=== PATIENT | female | born 1965 | race Caucasian/White ===

== ENCOUNTER → 2017-03-19 | Outpatient (CLI) | payer OTHER ==
--- NOTE | 2017-03-20 08:03 | MM ---
Reason for exam: additional evaluation requested from prior study. Last mammogram was performed 2 years ago. History: Patient is postmenopausal and history of other cancer. Family history of breast cancer in cousin and breast cancer in mother at age 65. Took hormonal contraceptives for 7 years beginning at age 12. Physical Findings: Nurse did not find any significant physical abnormalities on exam. MG Diagnostic Mammo w CAD SARAH Bilateral CC and MLO view(s) were taken. Prior study comparison: March 18, 2015, bilateral MG work up mamm w CAD BILAT. February 17, 2015, bilateral MG screening mammo w CAD. The breast tissue is heterogeneously dense. This may lower the sensitivity of mammography. There is chronic nodularity bilaterally. Vague increased density superior left breast without distortion or dominant mass. Summation is suspected. A 6 month follow up is recommended. These results were verbally communicated with the patient and result sheet given to the patient on 03/19/17. ASSESSMENT: Probably benign, BI-RAD 3 RECOMMENDATION: Follow-up diagnostic mammogram of the left breast in 6 months.
== END | disposition home or self-care (01) ==
LOC: RADMAMWWP 14:19
PROVIDERS: ATTEND Family Medicine
DX: R92.8 Other abnormal and inconclusive findings on diagnostic imaging of breast (principal)

== ENCOUNTER → 2017-06-03 | Outpatient (CLI) | payer OTHER ==
--- NOTE | 2017-06-03 12:36 | XR ---
Left hip HISTORY: Chronic left hip pain 2 views of the left hip Comparison to CT dated 06/13/2015 Marginal spurring is present at the femoral head. Alignment, bone mineralization are maintained. No f racture or dislocation. There may be some mild loss of joint space. IMPRESSION: Osteoarthritis.
== END | disposition home or self-care (01) ==
LOC: RADXRMAIN 11:36
PROVIDERS: ATTEND Physician Assistant
DX: M16.12 Unilateral primary osteoarthritis, left hip (principal)
CPT/HCPCS: 73502

== ENCOUNTER → 2017-08-15 | Outpatient (CLI) | payer OTHER ==
--- NOTE | 2017-08-15 11:42 | ECHOS ---
STRESS ECHOCARDIOGRAM DATE OF SERVICE: 08/15/2017 INDICATIONS: Fatigue. MEDICATIONS: [place], Klonopin, omeprazole, inhaler. BASELINE HEART RATE: 93 BASELINE BLOOD PRESSURE: 120/66 MAXIMUM HEART RATE: 134 MAXIMUM BLOOD PRESSURE: 154/64 85% MPHR: 141 100% MPHR: 166 METS: 4.4 MAXIMUM STAGE REACHED: 1 TOTAL EXERCISE TIME: 3:00 Baseline EKG revealed normal sinus rhythm without significant ST-T changes. Patient walked on a standard [place] protocol for only 3 minutes, achieved a maximal heart rate of 134 beats per minute which is less than 85% of predicted maximal. She developed fatigue and shortness of breath. EKG did not reveal any ST-segment changes to indicate ischemia. Isolated PVCs were noted. This patient had limited exercise capacity and an inconclusive stress test. Technically without symptoms of angina. Baseline echo images revealed normal wall motion and wall thickening of all segments. At peak exercise, patient developed some hypokinesia of the anteroseptal portion, raising the possibility of ischemia. This was seen both in the short axis, as well as parasternal long-axis views. Clinical correlation is suggested. The possibility of ischemia in the antral septum should be considered. IMPRESSION: 1. By EKG criteria, this is an inconclusive stress test because of limited exercise capacity and inadequate chronotropic response. However, at a heart rate of 130 beats per minute, she did not have any ischemic changes. 2. Abnormal stress echocardiogram suggesting anteroseptal ischemia because of decreased wall motion with exercise. Clinical correlation is suggested. MMODL / IJN: [id number] /
== END | disposition home or self-care (01) ==
LOC: RADNMMAIN 10:03
PROVIDERS: ATTEND Family Medicine
DX: R53.83 Other fatigue (principal); Z88.6 Allergy status to analgesic agent; Z88.8 Allergy status to other drugs, medicaments and biological substances
CPT/HCPCS: 93017; 93350

== ENCOUNTER → 2019-08-10 | Outpatient (CLI) | payer OTHER ==
--- NOTE | 2019-08-10 21:54 | XR ---
EXAMINATION TYPE: XR chest 2V DATE OF EXAM: 08/10/2019 COMPARISON: Chest x-ray July 29, 2017. HISTORY: Lateral neck and chest pain. TECHNIQUE: Frontal and lateral views of the chest are obtained. FINDINGS: Overlying bra strap is present. Background chronic emphysematous change redemonstrated appr eciated best on lateral view. There is no suspicious focal air space opacity, pleural effusion, or pn eumothorax seen. The cardiac silhouette size is within normal limits with atherosclerotic change in the aortic knob. The osseous structures are intact. IMPRESSION: Chronic emphysematous change without acute pulmonary process. No significant change from prior.
--- NOTE | 2019-08-10 21:56 | XR ---
EXAMINATION TYPE: XR cervical spine comp DATE OF EXAM: 08/10/2019 TECHNIQUE: Frontal, lateral, oblique,and open mouth view of the cervical spine are obtained. HISTORY: M54.2 COMPARISON: None FINDINGS: The cervical spine is visualized in its entirety from C1 thru the top of T1 level, it is s atisfactory in alignment without evidence of acute fracture or dislocation. The pre-vertebral soft t issue appears within normal limits. The C1-C2 articulation is within normal limits on the open mouth view. Vertebral body heights are maintained. Moderate size spur from the anterior inferior C5 verte bra. Moderate disc space narrowing and anterior spurring C6-C7 level. The oblique images show some bi lateral neural foraminal narrowing at C6-C7 level due to marginal spurring. Overlying soft tissue is unremarkable. IMPRESSION: As above.
--- NOTE | 2019-08-11 08:24 | US ---
EXAMINATION TYPE: US venous doppler duplex LE LT DATE OF EXAM: 08/10/2019 5:22 PM COMPARISON: NONE CLINICAL HISTORY: LEFT LEG DVT. Left leg pain x 2 to 3 weeks; spine problems SIDE PERFORMED: Left TECHNIQUE: The lower extremity deep venous system is examined utilizing real time linear array sonog mandy with graded compression, doppler sonography and color-flow sonography. VESSELS IMAGED: Common Femoral Vein Deep Femoral Vein Greater Saphenous Vein * Femoral Vein Popliteal Vein Small Saphenous Vein * Proximal Calf Veins (* superficial vessels) Grayscale, color doppler, spectral doppler imaging performed of the deep veins of the left lower extr emity. There is normal flow, compressibility, vascular waveforms. Left Leg: Negative for DVT. Left complex popliteal fossa cyst is noted = 5.1 x 2.3 x 0.8cm. Lipomato us lesion seen anterior above knee at pain/palpable =1.7 x 1.2 x 0.5cm. Couple of groin lymph nodes s een with larger node = 2.6 x 0.9 x 0.6cm. IMPRESSION: 1. No sonographic evidence of deep venous thrombosis within the left lower extremity. 2. Complex popliteal fossa cyst measuring 5.1 cm. 3. Multiple nonenlarged left inguinal lymph nodes are incidentally seen. 4. In the patient's area of pain there is a lipomatous lesion corresponding the palpable abnormality measuring 1.7 cm. These are typically benign however there is interval clinical growth repeat ultraso und for comparison in size or MR with contrast would be recommended to exclude malignant lipomatous l esion.
== END | disposition home or self-care (01) ==
LOC: RADUSWWP 16:55
PROVIDERS: ATTEND Family Medicine
DX: J43.9 Emphysema, unspecified (principal); F17.200 Nicotine dependence, unspecified, uncomplicated; M48.02 Spinal stenosis, cervical region; M99.71 Connective tissue and disc stenosis of intervertebral foramina of cervical region; M71.22 Synovial cyst of popliteal space [Baker], left knee; D17.24 Benign lipomatous neoplasm of skin and subcutaneous tissue of left leg
CPT/HCPCS: 71046; 72050

== ENCOUNTER → 2019-08-24 | Outpatient (CLI) | payer OTHER ==
--- NOTE | 2019-08-24 15:45 | US ---
EXAMINATION TYPE: US pelvic complete DATE OF EXAM: 08/24/2019 COMPARISON: CT 06/13/2015, US 06/09/2015 CLINICAL HISTORY: R19.00 Intra-abdominal and pelvic swelling. Partial hysterectomy April 2016 TECHNIQUE: Transabdominal sonographic images of the pelvis were acquired. Patient refused transvag inal ultrasound Date of LMP: 2015 EXAM MEASUREMENTS: Uterus: Surgically absent Endometrial Stripe: Surgically absent Right Ovary: Not visualized with certainty Left Ovary: Not visualized 1. Uterus: Surgically absent 2. Endometrium: Surgically absent 3. Right Ovary: Not visualized with certainty 4. Left Ovary: Obscured by overlying bowel gas 5. Bilateral Adnexa: Within the right adnexa, there is a cystic area visualized 3.9 x 3.4 x 3.3. Thi s previously measured approximately 2.3 x 2.2 x 1.9 cm on the exam of 06/09/2015. 6. Posterior cul-de-sac: wnl IMPRESSION: There is interval growth of the cystic right adnexal lesion. In a postmenopausal female. Further characterization is recommended with MRI of the pelvis with and without contrast.
== END | disposition home or self-care (01) ==
LOC: RADUSWWP 15:12
PROVIDERS: ATTEND Family Medicine
DX: N94.89 Other specified conditions associated with female genital organs and menstrual cycle (principal)
CPT/HCPCS: 76856

== ENCOUNTER → 2019-09-07 | Outpatient (CLI) | payer OTHER ==
[2019-09-07 12:02] LABS: Basophils # (A) 0.1 k/uL (0-0.2); Basophils % (A) 1 %; Eosinophils # (A) 0.4 k/uL (0-0.7); Eosinophils % (A) 4 %; HCT 46.8 % (34.0-46.0); HGB 15.6 gm/dL (11.4-16.0); Lymphocytes % (A) 25 %; MCH 29.5 pg (25.0-35.0); MCHC 33.4 g/dL (31.0-37.0); MCV 88.3 fL (80.0-100.0); Mean Platelet Volume 7.8; Monocytes # (A) 0.2 k/uL (0-1.0); Monocytes % (A) 3 %; Neutrophils # (A) 5.2 k/uL (1.3-7.7); Neutrophils % (A) 65 %; Platelet Count 375 k/uL (150-450); RDW 12.7 % (11.5-15.5); WBC 8.1 k/uL (3.8-10.6)
[2019-09-07 17:53] LABS: Anion Gap 9.3 mmol/L (4.00-12.00); BUN/Creat Ratio 17.5 Ratio (12.00-20.00); Carbon Dioxide 22.7 mmol/L (21.6-31.8); Chol/HDL Ratio 3.46; LDL Cholesterol,Calculated 140.6 mg/dL (0.0-131.0); Potassium 4.6 mmol/L (3.5-5.5); VLDL Calculation 31.4 mg/dL (5.00-40.00)
[2019-09-07 17:54] LABS: African American GFR (CKD) 95.5 (60.0-200.0); Albumin 4.8 g/dL (3.80-4.90); Albumin/Globulin Ratio 2.29 (1.60-3.17); Globulin 2.1 g/dL (1.6-3.3); Non-African American GFR(CKD) 82.4 (60.0-200.0); Total Bilirubin 0.5 mg/dL (0.3-1.2); Total Protein 6.9 g/dL (6.2-8.2)
[2019-09-07 18:01] LABS: T4, Free (Free Thyroxine) 1.3 ng/dL (0.80-1.80)
== END | disposition home or self-care (01) ==
LOC: LABWHC1 11:07
PROVIDERS: ATTEND Physician Assistant
DX: Z00.00 Encounter for general adult medical examination without abnormal findings (principal)
CPT/HCPCS: 36415; 80053; 80061; 84439; 84443; 85025

== ENCOUNTER → 2019-09-22 | Outpatient (CLI) | payer OTHER ==
--- NOTE | 2019-09-22 15:18 | BD ---
EXAMINATION TYPE: Axial Bone Density DATE OF EXAM: 09/22/2019 COMPARISON: 2014 CLINICAL HISTORY: Z 78.0 Height: 65 inches Weight: 228 FRAX RISK QUESTIONS: Alcohol (3 or more units per day): no Family History (Parent hip fracture): yes, father Glucocorticoids (More than 3mos): yes, inhaler (Ex: prednisone, prednisolone, methylprednisolone, dexamethasone, and hydrocortisone). History of Fracture in Adulthood: yes Secondary Osteoporosis: 1. Type 1 Diabetes: no 2. Hyperthyroidism: no 3. Menopause before 45: 41, hysterectomy 4. Malnutrition: no 5. Chronic liver disease: no Rheumatoid Arthritis: no Current Tobacco Use: no, quit last March RISK FACTORS HISTORY OF: Family History of Osteoporosis: unsure Active: somewhat Diet low in dairy products/other sources of calcium: no Postmenopausal woman: yes Take estrogen and/or progesterone medications: not now How long: hormonal contraceptives about 7 years Lost more than 2 inches in height since high school: possibly, states height was about 67 inches at o ne time Frequent falls: yes Poor Health: somewhat Hyperparathyroidism: no Adrenal Insufficiency: no MEDICATIONS: Prednisone or other steroids: yes; inhaler & nebulizer, updraft How Long: many years Thyroid Medications: no Osteoporosis Medications: no Additional Medications: "stomach" meds ; pain meds Additional History: COPD, asthma (since childhood); cervical CA twice EXAM MEASUREMENTS: Bone mineral densitometry was performed using the [employer]Star System. Bone mineral density as measured about the Lumbar spine is: ----- L1-L4(G/cm2): 0.876 T Score Values are as follows: ----- L2: -2.2 ----- L3: -3.3 ----- L4: -2.5 ----- L1-L4: -2.5 Bone mineral density has: Decreased -0.8% since study of: 06/30/2015 Bone mineral density about the R hip (g/cm2): 0.747 Bone mineral density about the L hip (g/cm2): 0.772 T Score values are as follows: -----R Neck: -2.1 -----L Neck: -1.9 -----R Total: -2.1 -----L Total: -1.8 Bone mineral density has: Decreased -3.7% since study of: 06/30/2015 IMPRESSION: Osteoporosis (T Score less than -2.5) with regards to the lumbar spine. There is increased fracture risk and therapy is usually indicated based on age. Re-Screen 1-2 years. NOTE: T-SCORE=SD OF THE YOUNG ADULT MEAN.
--- NOTE | 2019-09-24 08:45 | MM ---
Reason for exam: screening (asymptomatic). Last mammogram was performed 2 years and 6 months ago. History: Patient is postmenopausal and history of other cancer. Family history of breast cancer in cousin and breast cancer in mother at age 65. Took hormonal contraceptives for 7 years beginning at age 12. Physical Findings: A clinical breast exam by your physician is recommended on an annual basis and results should be correlated with mammographic findings. MG Screening Mammo w CAD Bilateral CC, MLO, and XCCL view(s) were taken. Prior study comparison: March 19, 2017, bilateral MG diagnostic mammo w CAD SARAH. March 18, 2015, bilateral MG work up mamm w CAD BILAT. The breast tissue is heterogeneously dense. This may lower the sensitivity of mammography. There is chronic nodularity bilaterally. Possible subareolar architectural distortion right CC view persists on XCCL view. ASSESSMENT: Incomplete: need additional imaging evaluation, BI-RAD 0 RECOMMENDATION: Special view mammogram of the right breast. (3D) Ultrasound of the left breast. (for pain) [facility] will attempt to contact patient to return for supplemental views and ultrasound.
== END | disposition home or self-care (01) ==
LOC: RADMAMWWP 13:31
PROVIDERS: ATTEND Family Medicine
DX: M81.8 Other osteoporosis without current pathological fracture (principal)
CPT/HCPCS: 77067; 77080

== ENCOUNTER → 2019-09-22 | Outpatient (CLI) | payer OTHER | END | disposition home or self-care (01) | LOC: LABWHC1 13:12 | PROVIDERS: ATTEND Obstetrics & Gynecology | DX: N83.209 Unspecified ovarian cyst, unspecified side (principal); N83.8 Other noninflammatory disorders of ovary, fallopian tube and broad ligament | CPT/HCPCS: 36415; 86304 ==

== ENCOUNTER → 2019-10-05 | Outpatient (CLI) | payer OTHER ==
--- NOTE | 2019-10-07 14:08 | MM ---
Reason for exam: additional evaluation requested from abnormal screening. Last mammogram was performed less than 1 month ago. History: Patient is postmenopausal and history of other cancer. Family history of breast cancer in cousin and breast cancer in mother at age 65. Took hormonal contraceptives for 7 years beginning at age 12. Physical Findings: Nurse did not find any significant physical abnormalities on exam. MG Work Up Mamm w CAD RT Spot compression CC, spot compression MLO, LM, CCRM, and CCRL view(s) were taken of the right breast. Prior study comparison: September 22, 2019, bilateral MG screening mammo w CAD. March 19, 2017, bilateral MG diagnostic mammo w CAD SARAH. The breast tissue is heterogeneously dense. This may lower the sensitivity of mammography. There is a right upper inner quadrant spiculated 8mm mass 5.5cm from nipple. These results were verbally communicated with the patient and result sheet given to the patient on 10/05/19. ASSESSMENT: Incomplete: need additional imaging evaluation, BI-RAD 0 RECOMMENDATION: Ultrasound of the right breast. (upper inner quadrant)
--- NOTE | 2019-10-07 14:12 | USB ---
Reason for exam: additional evaluation requested from abnormal screening. History: Patient is postmenopausal and history of other cancer. Family history of breast cancer in cousin and breast cancer in mother at age 65. Took hormonal contraceptives for 7 years beginning at age 12. US Breast Workup Limited SARAH Right limited breast ultrasound including focal area of concern, retroareolar and axilla demonstrates a 1.0 x 0.7 x 0.6cm oval, lobular, hypoechoic lesion at 1 o'clock, a 0.3 x 0.3 x 0.5cm oval, irregular, taller than wide, hypoechoic lesion at 1 o'clock for which a biopsy is recommended, ductal ectasia at the posterior nipple and a 0.9 x 1.3 x 0.7cm node at the axilla. Left complete breast ultrasound includes all four quadrants, the retroareolar region and axilla. Finding demonstrates a 0.7 x 0.7 x 0.8cm node at 2 o'clock. These results were verbally communicated with the patient and result sheet given to the patient on 10/05/19. ASSESSMENT: Highly suggestive of malignancy, BI-RAD 5 RECOMMENDATION: Ultrasound core biopsy of the right breast. (1 o'clock) Called Dr. Vidal's office with mammographic findings and has scheduled an appointment for the patient for 10/22/19 at 12:[address] Lozano. Biopsy scheduled for 11/05/19 at 12:20. PRELIMINARY REPORT CALLED AND FAXED TO DR. LOZANO ON 10/07/19.
== END | disposition home or self-care (01) ==
LOC: RADMAMWWP 14:29
PROVIDERS: ATTEND Family Medicine
DX: R92.8 Other abnormal and inconclusive findings on diagnostic imaging of breast (principal)
CPT/HCPCS: 77065

== ENCOUNTER → 2019-11-05 | Day surgery (SDC) | payer OTHER ==
[2019-11-05 11:43] VITALS: RESP 16; TEMP 98.4
[2019-11-05 13:06] VITALS: BP 129/86; PULSE 86
== END ==
LOC: RADUSWWP 11:20
PROVIDERS: ATTEND Surgery
DX: C50.911 Malignant neoplasm of unspecified site of right female breast (principal); Z17.0 Estrogen receptor positive status [ER+]
CPT/HCPCS: 77065; 19083; A4648; J2001; 88305; 88341; 88342

== ENCOUNTER → 2019-12-16 | Outpatient (CLI) | payer OTHER ==
--- NOTE | 2019-12-18 09:34 | BMR ---
EXAMINATION TYPE: MR breast BILAT wo/w con DATE OF EXAM: 12/16/2019 COMPARISON: Ultrasound right breast biopsy dated 11/05/2019, bilateral ultrasound dated 10/05/2019, sandy gnostic mammogram dated 10/05/2019, and screening mammogram dated 09/22/2019. HISTORY: Biopsy-proven right breast cancer (1.0 cm mass at the 1:00 position in the right breast with pathologic diagnosis of invasive moderately differentiated ductal carcinoma-grade 2). TECHNIQUE: A series of fat and water weighted images in the long and short axis views of both breasts are obtained in conjunction with dynamic contrast MRI with subtraction technique. The patient was i njected with 10 mL intravenous Gadavist gadolinium contrast. Three-dimensional and additional postp rocessing imaging is created on independent workstation and reviewed during official interpretation o f this study. FINDINGS: The breasts are composed of heterogenous fibroglandular tissue with moderate background symmetric par enchymal enhancement. The biopsy-proven right breast invasive ductal carcinoma at the 1:00 position i n total measures 1.3 x 1.1 x 1.7 cm. On the prior ultrasound of 10/05/2019 there were 2 adjacent andrea s that were intimately associated with one another. Biopsy was performed of both masses at the same t bahman given their extremely close proximity. On MRI these enhance as one mass yielding a larger total m easurement as stated above. There is ar 4 mm focus of abnormal enhancement in the upper outer quadrant of the right breast near t he 12:00 position located approximately 6.1 cm from the nipple demonstrating type II plateau kinetics . Kinetics are more suspicious than the biopsy-proven invasive ductal carcinoma (which demonstrates t ype I plateau kinetics). Therefore second look ultrasound is recommended. Intramammary lymph nodes are seen bilaterally as well as background enhancing foci bilaterally, howev er no additional suspicious mass or nodule mass enhancement is seen within either breast. No suspicio us axillary adenopathy bilaterally. No suspicious internal mammary adenopathy. IMPRESSION: BI-RADS [id number] breast cancer. 1. The biopsy-proven right breast invasive ductal carcinoma measures 1.3 x 1.1 x 1.7 cm. The 2 direct ly adjacent masses at the 1:00 position on the ultrasound of 10/05/2019 account for this new measureme nt size. 2. Second look ultrasound is recommended for a 4 mm abnormal focus of enhancement at the 12:00 positi on in the right breast approximately 6 cm from the nipple. This could represent a small intramammary lymph node, background focus of enhancement or neoplasm. 3. No additional suspicious masses are nonmass enhancement in either breast. No suspicious adenopathy .
== END | disposition home or self-care (01) ==
LOC: RADMRIMAIN 11:11
PROVIDERS: ATTEND Internal Medicine Hematology & Oncology
DX: C50.911 Malignant neoplasm of unspecified site of right female breast (principal)
CPT/HCPCS: C8937; C8908; A9585; 77049

== ENCOUNTER → 2019-12-29 | Outpatient (CLI) | payer OTHER ==
[2019-12-29 11:35] VITALS: BP 126/84; PULSE 88; RESP 18; TEMP 98.1
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
--- NOTE | 2019-12-30 07:50 | USB ---
Reason for exam: additional evaluation requested from prior study. History: Patient is postmenopausal, has history of breast cancer at age 54, and history of other cancer. Family history of breast cancer in cousin and breast cancer in mother at age 65. Malignant US biopsy breast VAD RT of the right breast, November 05, 2019. Took hormonal contraceptives for 7 years beginning at age 12. Physical Findings: Nurse did not find any significant physical abnormalities on exam. US Breast RT Right complete breast ultrasound includes all four quadrants, the retroareolar region and axilla. Finding demonstrates a 3 x 3 x 3mm oval, hypoechoic mass at 12 o'clock appears to correspond to MR findings, biopsy recommended, a 1.8 x 1.4 x 1.2cm irregular, hypoechoic lesion at 1 o'clock, biopsy proven cancer and a 7 x 3 x 4mm oval, cystic lesion at 1 o'clock. These results were verbally communicated with the patient and result sheet given to the patient on 12/29/19. ASSESSMENT: Suspicious, BI-RAD 4 RECOMMENDATION: Ultrasound core biopsy of the right breast. (with post biopsy/sequence nonfat sat axila MRI for marker confirmation) PRELIMINARY REPORT CALLED AND FAXED TO DR. BRICEÑO ON 12/30/19.
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
== END | disposition home or self-care (01) ==
LOC: WWCWWP 09:46
PROVIDERS: ATTEND Surgery
DX: R92.8 Other abnormal and inconclusive findings on diagnostic imaging of breast (principal); C50.911 Malignant neoplasm of unspecified site of right female breast; Z17.0 Estrogen receptor positive status [ER+]; Z85.41 Personal history of malignant neoplasm of cervix uteri; Z78.0 Asymptomatic menopausal state; J44.9 Chronic obstructive pulmonary disease, unspecified; M81.0 Age-related osteoporosis without current pathological fracture; G89.29 Other chronic pain; R26.81 Unsteadiness on feet; F17.200 Nicotine dependence, unspecified, uncomplicated; Z80.3 Family history of malignant neoplasm of breast; I25.2 Old myocardial infarction; Z90.710 Acquired absence of both cervix and uterus; Z90.49 Acquired absence of other specified parts of digestive tract; Z98.890 Other specified postprocedural states; Z98.51 Tubal ligation status; Z80.1 Family history of malignant neoplasm of trachea, bronchus and lung; Z80.0 Family history of malignant neoplasm of digestive organs; Z79.899 Other long term (current) drug therapy; Z79.891 Long term (current) use of opiate analgesic; Z88.6 Allergy status to analgesic agent

== ENCOUNTER → 2020-01-04 | Outpatient (CLI) | payer OTHER | END | disposition home or self-care (01) | LOC: LABWHC1 10:35 | PROVIDERS: ATTEND Surgery | DX: Z53.9 Procedure and treatment not carried out, unspecified reason (principal) ==

== ENCOUNTER → 2020-01-06 | Day surgery (SDC) | payer OTHER ==
[2020-01-06 11:04] VITALS: RESP 16; TEMP 98
[2020-01-06 13:21] VITALS: BP 125/83; PULSE 84
--- NOTE | 2020-01-08 16:53 | USB ---
ULTRASOUND GUIDED CORE BIOPSY RIGHT BREAST: CLINICAL HISTORY: Request for ultrasound guided core biopsy of the 12:00 right breast 3 mm lesion FINDINGS: The procedure was explained to the patient. The risks, complications, benefits and alternatives were discussed and any questions were answered. Informed consent was obtained. Patient was placed supine on the ultrasound table and prepped and draped in the usual sterile fashion. Utilizing a 14 gauge needle, single pass was made into the nodule. Nonfat saturated axilla MRI of the nodules not seen with certainty so a second pass could not be performed. Surgical clip was placed. Patient was stable throughout the procedure. Pathology is pending. All elements of maximal barrier and sterile technique were utilized. IMPRESSION: 1. Successful ultrasound guided core biopsy of the right breast 12:00 lesion as discussed above. Only a single pass was performed. After the first pass the lesion was no longer seen with certainty. Note is made the lesion was recommended for biopsy by MRI reading radiologist with the findings seen on MRI. Correlation with pathology is recommended. If the pathology is discordant then a MRI biopsy would be recommended.. Additionally, as requested by the original radiologist (Dr. Kyle) a postbiopsy nonfat saturated axial MRI sequence is recommended to confirm marker placement relative to the MRI finding to confirm that the ultrasound lesion is the lesion described by MRI for biopsy. Pathology Results: Benign RIGHT BREAST: Benign breast parenchyma with fibrocystic spectrum changes. No residual/recurrent neoplasm. No evidence of mineralizations. Recommendation Surgical consult of the right breast. AARON
== END ==
LOC: RADUSWWP 09:24
PROVIDERS: ATTEND Surgery
DX: N60.11 Diffuse cystic mastopathy of right breast (principal)
CPT/HCPCS: 88305; 87635; 19083; A4648; J2001

== ENCOUNTER → 2020-01-12 | Outpatient (CLI) | payer OTHER ==
[2020-01-12 15:08] LABS: African American GFR (CKD) >90 (>60 ml/min/1.73 sqM); Blood Urea Nitrogen 13 mg/dL (7-17); Non-African American GFR(CKD) >90 (>60 ml/min/1.73 sqM)
--- NOTE | 2020-01-12 15:49 | US ---
EXAMINATION TYPE: US venous doppler duplex UE LT DATE OF EXAM: 01/12/2020 COMPARISON: None CLINICAL HISTORY: R22.0 swelling, mass, lump in neck, R05 cough. Not on blood thinners. No hx of blo od clots. SIDE PERFORMED: Left arm Left Arm: Negative for DVT IMPRESSION: 1. Left upper extremity ultrasound negative for deep venous thrombosis.
--- NOTE | 2020-01-12 20:29 | CT ---
EXAMINATION TYPE: CT soft tissue neck w con DATE OF EXAM: 01/12/2020 HISTORY: Swelling mass and lump in neck. Left neck base swelling per technologist.. COMPARISON: CT cervical spine August 02, 2014 CT DLP: 410.58 mGycm. Automated Exposure Control for Dose Reduction was Utilized. TECHNIQUE: CT scan of the neck is performed with IV Contrast, patient injected with 80 mL of Isovue 300, axial images are obtained, coronal and sagittal reformatted images are reviewed. FINDINGS: Airway: No gross abnormality seen. Parotid/submandibular glands: No gross abnormality seen. Carotid/Vascular Structures: No significant abnormalities seen. Osseous Structures: Spine is straightened with moderate anterior spurring and disc space narrowing C6 -C7 level. Other: No suspicious greater than 1 cm neck adenopathy identified bilaterally. Prominent but scattere d subcentimeter lymph nodes are seen bilaterally. Parapharyngeal fat spaces are maintained. Visualize d brain unremarkable. Please refer to same day CT chest abdomen pelvis report for complete details on the visualized upper lungs. IMPRESSION: No suspicious mass or adenopathy.
--- NOTE | 2020-01-12 21:16 | CT ---
EXAMINATION TYPE: CT ChestAbdPelvis w con DATE OF EXAM: 01/12/2020 COMPARISON: CT abdomen and pelvis June 13, 2015 HISTORY: cough, smoker, breast cancer. Abdominal pain. CT DLP: 2003 mGycm. Automated Exposure Control for Dose Reduction was Utilized. CONTRAST: CT scan of the thorax, abdomen and pelvis is performed with oral and with IV Contrast, patient inject ed with 80 mL of Isovue 300. FINDINGS: LUNGS: Respiratory motion artifact degradation noted making evaluation suboptimal particularly for jon bcentimeter nodules. This persists on repeat attempt. No obvious pulmonary masses. Mild underlying em physematous change without suspicious focal consolidation. MEDIASTINUM: There are no greater than 1 cm hilar or mediastinal lymph nodes. No cardiomegaly or pe ricardial effusion is seen. OTHER: Fairly symmetric heterogeneously dense fibroglandular tissue throughout both breasts. Some art ifact from overlying upper extremities noted. Known right-sided breast cancer on recent MRI December 16, 2019 less well seen on CT on background heterogeneously dense tissue. LIVER/GB: Cholecystectomy clips are redemonstrated. Liver remains low dense suggesting diffuse fatty infiltration. PANCREAS: No significant abnormality is seen. SPLEEN: No significant abnormality is seen. ADRENALS: There is 2.4 x 1.2 cm right adrenal low dense mass axial image 66 in retrospect likely unch anged from prior CT axial image 17 favoring benign lipid rich adenoma. KIDNEYS: No significant abnormality is seen. BOWEL: Oral contrast does not reach the terminal ileum making evaluation of distal bowel suboptimal. No suspicious small or large bowel dilatation is seen. Mild wall thickening involving the sigmoid col on is present. Correlate to exclude mild uncomplicated acute colitis. GENITAL ORGANS: Uterus redemonstrated surgically absent. In the right pelvis there is now 3.5 x 3.1 c m low dense lesion image 110. This can be better evaluated and characterized with pelvic ultrasound i f desired LYMPH NODES: No greater than 1cm abdominal or pelvic lymph nodes are appreciated. OSSEOUS STRUCTURES: Facet arthropathy lower lumbar levels. Mild to moderate disc space narrowing with vacuum disc phenomenon L4-L5 and L5-S1 levels. Slight scoliotic curvature in the upper to mid thorac ic spine are noted. Mild to moderate axial joint space loss in both hips with mild spurring. OTHER: Tiny fat-containing umbilical hernia. IMPRESSION: Mild emphysematous change without acute pulmonary process. New 3.5 cm low dense right ov selene mass can be better evaluated and characterized with pelvic ultrasound. No obvious metastatic di sease from breast cancer.
== END | disposition home or self-care (01) ==
LOC: RADCTMAIN 14:28
PROVIDERS: ATTEND Surgery
DX: R22.1 Localized swelling, mass and lump, neck (principal); N83.8 Other noninflammatory disorders of ovary, fallopian tube and broad ligament; J43.9 Emphysema, unspecified; R10.9 Unspecified abdominal pain; R22.32 Localized swelling, mass and lump, left upper limb; Z85.41 Personal history of malignant neoplasm of cervix uteri; C50.919 Malignant neoplasm of unspecified site of unspecified female breast
CPT/HCPCS: 82565; 84520; 93971; 70491; 71260; 74177; 36415; Q9967

== ENCOUNTER → 2020-01-14 | Outpatient (CLI) | payer OTHER ==
[2020-01-14 11:31] VITALS: BP 109/75; PULSE 89; RESP 18; TEMP 98.5
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
== END | disposition home or self-care (01) ==
LOC: WWCWWP 11:19
PROVIDERS: ATTEND Surgery
DX: Z53.9 Procedure and treatment not carried out, unspecified reason (principal)

== ENCOUNTER → 2020-01-15 | Outpatient (CLI) | payer OTHER ==
--- NOTE | 2020-01-15 13:32 | US ---
EXAMINATION TYPE: US pelvic complete DATE OF EXAM: 01/15/2020 COMPARISON: CT 01/12/2020, US 08/24/2019, CT 2014 CLINICAL HISTORY: N83.0 right ovarian cyst. Known right adnexal cyst x6 years. Partial Hysterectomy TECHNIQUE: Transabdominal sonographic images of the pelvis were acquired. EXAM MEASUREMENTS: Uterus: Surgically absent Endometrial Stripe: Surgically absent Right Ovary: Not visualized with certainty Left Ovary: Not visualized with certainty 1. Uterus: Surgically absent 2. Endometrium: Surgically absent 3. Right Ovary: Not visualized with certainty 4. Left Ovary: Not visualized with certainty 5. Bilateral Adnexa: Within the right adnexa, there is a cystic area visualized measuring 3.4 x 2.5 x 3.5 cm. This area previously measured 3.9 x 3.4 x 3.3 on 08/24/2019. Overall decrease in size. No n ew internal complexity seen. 6. Posterior cul-de-sac: wnl IMPRESSION: Overall decrease in size of the right adnexal cystic lesion now measuring 3.5 cm and prev iously measuring 3.9 cm. No new internal complexity. Continued surveillance is recommended in this po stmenopausal female.
== END | disposition home or self-care (01) ==
LOC: RADUSWWP 12:34
PROVIDERS: ATTEND Obstetrics & Gynecology
DX: N83.201 Unspecified ovarian cyst, right side (principal)
CPT/HCPCS: 76856

== ENCOUNTER → 2020-01-15 | Outpatient (CLI) | payer OTHER | END | disposition home or self-care (01) | LOC: LABWHC1 12:32 | PROVIDERS: ATTEND Surgery | DX: Z11.59 Encounter for screening for other viral diseases (principal) | CPT/HCPCS: 87635 ==

== ENCOUNTER 2020-01-19 09:01 | Day surgery (SDC) | payer OTHER ==
[2020-01-13 13:54] VITALS: BMI 39.4
[~2020-01-19 09:01] MED LIST: DEXAMETHASONE SOD PHOSPHATE 10 MG/ML 1 ML VIAL IV ONE; HEPARIN SODIUM,PORCINE 5,000 UNIT/ML 1 ML VIAL SQ ONE; LACTATED RINGERS 1,000 ML IV SCH; LIDOCAINE 1% (10MG/ML) FOR IV START INTRADERMA PRN; MIDAZOLAM 2 MG/2 ML VIAL IV PRN; ONDANSETRON 4 MG/2 ML VIAL IVP ONE; Pre Op ABX Message 1 EACH MISC MISCELLANE ONE; fentaNYL (PF) 50 MCG/ML 2 ML AMP IV PRN
[2020-01-19] MEDS ORDERED: ALPRAZolam 0.5 MG TAB PO ONE (09:40)
[2020-01-19 10:03] VITALS: BP 149/91; PULSE 102; RESP 18; TEMP 97.7
--- NOTE | 2020-01-19 11:49 | BMR ---
EXAMINATION TYPE: MR breast RT wo con DATE OF EXAM: 01/19/2020 COMPARISON: MRI breast dated 12/16/2019 HISTORY: Abnormal mammogram, presurgical evaluation, verify clip placement. TECHNIQUE: Single sequence T1 nonfat sat axial MRI of the breasts was performed for localization of a right breast clip post ultrasound-guided biopsy. FINDINGS/IMPRESSION: The biopsy marker although located in the same imaging slice as the pathology, o n image 61, is located approximately 3 cm anterior to the suspicious MR focus. Additional biopsy hoa er placement could be performed under MRI after contrast injection within the suspicious focus with s ubsequent 2 site mammographic guided needle localization. Alternatively MRI localization could be per formed of the focus. Lastly consideration could be given to localization of only the primary biopsy-p roven cancer and short-term six-month follow-up MRI of the abnormal right breast focus.
[2020-01-19] MEDS ORDERED: METHYLENE BLUE 50 MG/10 ML AMPUL INJ ONE (13:35)
[2020-01-19] MEDS ORDERED: LIDOCAINE 1% INJ 10MG/ML (20 ML MDV) SQ ONE (13:42)
== END 2020-01-19 12:35 | disposition home or self-care (01) ==
LOC: OR 09:01
PROVIDERS: ATTEND Surgery
DX: C50.911 Malignant neoplasm of unspecified site of right female breast (principal); Z53.8 Procedure and treatment not carried out for other reasons

== ENCOUNTER → 2020-01-22 | Outpatient (CLI) | payer OTHER | END | disposition home or self-care (01) | LOC: LABWHC1 12:50 | PROVIDERS: ATTEND Surgery | DX: Z11.59 Encounter for screening for other viral diseases (principal) ==

== ENCOUNTER 2020-01-26 12:25 | Day surgery (SDC) | payer OTHER ==
[2020-01-26 12:57] VITALS: RESP 16; TEMP 98.3
[2020-01-26] MEDS ORDERED: ALPRAZolam 0.5 MG TAB PO STA (13:03)
[2020-01-26] MEDS ORDERED: LIDOCAINE 1%-EPI 1:100,000 20 ML VIAL SQ STA (13:42)
--- NOTE | 2020-01-26 15:09 | BMR ---
EXAMINATION TYPE: MR breast biopsy w/vad RIGHT DATE OF EXAM: 01/26/2020 CLINICAL HISTORY: Biopsy-proven right breast carcinoma and an abnormal suspicious focus on MRI for wh ich biopsy marker to be placed under MRI guidance for surgical excision. TECHNIQUE: Pre and postcontrast sagittal imaging of the right breast was performed. The patient was i njected with 10 mL intravenous Gadavist gadolinium contrast. Additional postprocessing imaging is cre ated on independent workstation and reviewed during the biopsy. FINDINGS: PREPROCEDURAL CONSULTATION: Following a discussion of the risks, benefits, and alternatives of the procedure, informed consent wa s obtained. The patient identified herself by both her name and date and indicated that the rig ht breast was the area of concern. Prior to the procedure, an audible timeout was done to verify nina ent identification, site and type of procedure. The right breast was marked prior to the procedure. PROCEDURE: The patient was placed on the MRI scanner within the breast coil with mild compression on the right b reast. T1 weighted axial images were obtained before and after administration of IV contrast. The enhancing area of concern was identified. The 5 Minutes CAD software program was used to localize the enhancing area of concern. The patient was taken out of the scanner and the skin was sterilely preppe d. 10 mL of 1% lidocaine was injected subcutaneously and then into the deeper tissues. Subsequently, a trochar and sheath were advanced into the breast at the designated depth. The trochar was removed and a plastic stylet was placed into the sheath and the patient was placed back into the scanner. T1 weighted images were again obtained. The stylet tip was in good position in relation to the area of c oncern. The stylet was removed and 5 cc of lidocaine with epinephrine was injected into the sheath. Two trima rk metallic clips were placed into the biopsy site. T1 weighted fat saturation images and nonfat sat urated images were then obtained demonstrating satisfactory location of the biopsy marking clips. The patient was then taken out of the scanner and hemostasis was achieved with manual compression. A tristen rile dressing was applied at the site of biopsy. The patient tolerated the procedure without difficul ty. Preprocedural mammogram will be performed prior to the needle localization. The patient experienced no complications during the procedure within the expected small postprocedura l hematoma at the site of biopsy. Home-going/follow-up instructions were reviewed with the patient be fore she left the department. IMPRESSION: Status post MRI guided biopsy marker placement of right breast abnormal suspicious MRI fo cus followed by placement of two trimark metallic clips, which will be subsequently targeted for need le localization along with the biopsy-proven right breast carcinoma. Pathology and an addendum are pe nding.
[2020-01-26 15:26] VITALS: BP 136/81; PULSE 86
== END 2020-01-26 15:25 | disposition home or self-care (01) ==
LOC: RADMRIMAIN 12:25
PROVIDERS: ATTEND Surgery
DX: C50.211 Malignant neoplasm of upper-inner quadrant of right female breast (principal)
CPT/HCPCS: 19085; C8937; A4648; A9585

== ENCOUNTER 2020-02-23 07:27 | Day surgery (SDC) | payer OTHER ==
[2020-02-19 13:35] VITALS: BMI 38.9
[~2020-02-23 07:27] MED LIST changes: +ALPRAZolam 0.5 MG TAB PO PRN; +HYDROmorphone 0.5 MG/0.5 ML SYRINGE IVP PRN; -LIDOCAINE 1% (10MG/ML) FOR IV START INTRADERMA PRN; -MIDAZOLAM 2 MG/2 ML VIAL IV PRN; -fentaNYL (PF) 50 MCG/ML 2 ML AMP IV PRN
[2020-02-23] MEDS ORDERED: ONDANSETRON 4 MG/2 ML VIAL ONE (08:04)
[2020-02-23] MEDS ORDERED: ALPRAZolam 0.5 MG TAB ONE (08:05)
[2020-02-23] MEDS ORDERED: LIDOCAINE 1% INJ 10MG/ML (20 ML MDV) SQ ONE ×2 (09:00→11:51)
[2020-02-23] MEDS ORDERED: HEPARIN SODIUM,PORCINE 5,000 UNIT/ML 1 ML VIAL ONE (09:35)
[2020-02-23] MEDS ORDERED: SUCCINYLCHOLINE CHLORIDE 100 MG/5 ML SYR IV ONE (09:49)
[2020-02-23] MEDS ORDERED: fentaNYL (PF) 50 MCG/ML 2 ML AMP ONE (09:49)
[2020-02-23] MEDS ORDERED: PROPOFOL 10 MG/ML 20 ML VIAL IV ONE (09:49)
[2020-02-23] MEDS ORDERED: KETAMINE 10 MG/ML 20 ML VIAL ONE (09:49)
[2020-02-23] MEDS ORDERED: MIDAZOLAM 2 MG/2 ML VIAL ONE (09:49)
[2020-02-23] MEDS ORDERED: ROCURONIUM BROMIDE 10 MG/ML 5 ML VIAL IV ONE (09:49)
[2020-02-23] MEDS ORDERED: ACETAMINOPHEN IV (For NPO) 1,000 MG/100 ML VIAL ONE (09:49)
[2020-02-23] MEDS ORDERED: HYDROmorphone (PF) 1 MG/ML ONE (09:49)
--- NOTE | 2020-02-23 10:02 | P.NAPBC ---
NAPBC Queries - NAPBC Queries Was patient's case review presented at [facility] tumor board? If no, comment.: Yes Was patient's pathology reviewed at [facility]? If no, comment.: Yes Was breast conservation surgery offered? If no, comment.: Yes Was sentinel node biopsy offered? If no, comment.: Yes Was diagnosis confirmed by percutaneous core biopsy? If no, comment.: Yes Is patient mastectomy patient?: No Was a preop referral to reconstructive surgeon offered?: No (not a mastectomy patient) Clinical Stage: Stage IA right breast cancer [id number]+CA?Her2-, location 12:00
--- NOTE | 2020-02-23 11:14 | NM ---
EXAMINATION TYPE: NM sentinel node injection DATE OF EXAM: 02/23/2020 COMPARISON: NONE HISTORY: RIGHT BREAST CA TECHNIQUE AND FINDINGS: The procedure of sentinel lymph node injection was explained to the patient. The benefits, alternatives, and risks were discussed. An informed consent was then obtained. Overlying skin is cleaned with sterile alcohol. Following this, 525 uCi Tc99m Tilmanocept was inject ed in the upper outer aspect of the right nipple intradermally. The patient tolerated the procedure well without any immediate complication. The patient was kept in the radiology department for short stay after the procedure and then taken to surgery for surgical p rocedure what is presumed intraoperative gamma probe will be used for sentinel lymph node detection. IMPRESSION: Right breast radiotracer injection for sentinel node localization as above.
--- NOTE | 2020-02-23 12:17 | P.OP ---
Date of Procedure: 02/23/20 Preoperative Diagnosis: Right breast stage IA cancer, MRI abnormality Postoperative Diagnosis: Same Procedure(s) Performed: [place] node biopsy, crescent mastopexy, needle localization with partial mastectomy, adjacent tissue transfer Anesthesia: PETE Surgeon: Alison Lozano Estimated Blood Loss (ml): 20 IV fluids (ml): 600 Pathology: other (Breast tissue) Condition: stable Disposition: same day Indications for Procedure: Biopsy proven cancer right breast between 1 and 12:00 o'clock position, MRI abnormality right breast Operative Findings: Dense breast tissue Description of Procedure: Charline is a 54-year-old white female with a biopsy-proven cancer of the right breast between the 1 and 12 o'clock position. She additionally had an area on MRI which showed in the upper lateral aspect of the breast an area which was suspicious and this was localized for resection at the time of the partial mastectomy. The patient understood the risks and benefits of the procedure and wished to proceed. In the preoperative area in an upright position ptosis was noted which was grade 2/3 and the patient was assessed. Skin markings were placed on the right breast with close measurement and marking of the intended new position of the right nipple areolar complex. This was approximately 3 cm superior to the location preoperative. The patient was brought to the operating room and the right breast and axilla were prepped and draped in a sterile fashion. The axilla was approached initially. The neoprobe was used to identify the area of greatest radioactivity. An incision was made in the axillary hair line and carried down into the deep axillary tissue. The radioactive lymph node was identified. This was removed using the Harmonic scalpel and the electrocautery device. The 10 second count on the lymph node was 5013. The background count in the axilla at 10 seconds was 6. The wound was well irrigated. Following this the deep tissues were closed using 3-0 Vicryl suture. The skin was closed using deep 3-0 Vicryl suture and a 4-0 Monocryl. The area of the breast was then approached. The skin area marked for the crescent was scored with the skin incision. The tissue within this was de- epithelialized. A curvilinear incision was made within the de-epithelialized zone adjacent to the planned partial mastectomy. Dissection was performed in the subcutaneous a nterior mammary plane towards the targeted lesions which included both the medial and more lateral needles. These were then brought out into the incision. Circumferential dissection around the targeted lesions (both medial and lateral) was performed. The specimen was removed and painted for orientation. Specimen radiograph confirmed that the targeted lesions were removed. The wound was well irrigated. Hemostasis was secured and titanium clips were placed. Dissection was performed at the deep layer of the breast tissue along the pectoralis major muscle. Approximately 35 mL of tissue was dissected along this plane to mobilize the glandular breast both superiorly and inferiorly to allow for repair of the defect from the partial mastectomy. The defect was closed in a [id number] fashion. This allowed for reshaping of the breast mound to repair the defect. The skin was then closed using 3-0 Vicryl suture. The nipple areolar complex was reapproximated using a running 4-0 Monocryl. Mastisol and Steri-Strips were applied. All instrument and sponge counts were correct at the end of the case. The patient tolerated procedure in stable condition.
[2020-02-23] MEDS ORDERED: ALBUTEROL NEBULIZED 2.5 MG/3 ML INHALATION ONE (12:19)
--- NOTE | 2020-02-23 12:19 | P.DS ---
Providers Attending physician: Alison Lozano Primary care physician: Tone Vidal Plan - Discharge Summary Discharge Rx Participant: Yes New Discharge Prescriptions: No Action Albuterol Nebulized [Ventolin Nebulized] 2.5 mg INHALATION RT-Q6H PRN PRN Reason: copd Albuterol Inhaler (Mhu) [Ventolin Inhaler] 1 - 2 puff INHALATION RT-Q6H PRN PRN Reason: copd HYDROcodone/APAP 5-325MG [[place] 5] 1 tab PO Q6HR PRN PRN Reason: Pain Polyethylene Glycol 3350 [Miralax] 17 gm PO DAILY PRN PRN Reason: Constipation Omeprazole [PriLOSEC] 20 mg PO AC-BRKFST Alendronate Sodium [Fosamax] 70 mg PO TU Calcium Carbonate/Vitamin D3 [Calcium 500-Vit D3 600 Tablet] 1 each PO DAILY Discharge Medication List Albuterol Inhaler (Mhu) [Ventolin Inhaler] 1 - 2 puff INHALATION RT-Q6H PRN 02/18/15 [History] Albuterol Nebulized [Ventolin Nebulized] 2.5 mg INHALATION RT-Q6H PRN 02/18/15 [History] HYDROcodone/APAP 5-325MG [[place] 5] 1 tab PO Q6HR PRN 02/18/15 [History] Omeprazole [PriLOSEC] 20 mg PO AC-BRKFST 06/14/15 [History] Polyethylene Glycol 3350 [Miralax] 17 gm PO DAILY PRN 06/14/15 [History] Alendronate Sodium [Fosamax] 70 mg PO TU 10/20/19 [History] Calcium Carbonate/Vitamin D3 [Calcium 500-Vit D3 600 Tablet] 1 each PO DAILY 12/29/19 [History] Follow up Appointment(s)/Referral(s): Alison Lozano MD [STAFF PHYSICIAN] - 1 Week Activity/Diet/Wound Care/Special Instructions: do not drive until seen by Dr. Vidal wear bra at all times may shower after 48 hours Discharge Disposition: HOME SELF-CARE
[2020-02-23 12:41] VITALS: TEMP 97.7
[2020-02-23 13:25] VITALS: PULSE 87; RESP 16
[2020-02-23 13:26] VITALS: BP 117/85
--- NOTE | 2020-02-23 13:50 | MM ---
EXAMINATION TYPE: MG pre op needle loc RT, MG surgical specimen RT DATE OF EXAM: 02/23/2020 11:04 AM COMPARISON: NONE HISTORY: Two site needle localization, breast CA Informed consent was obtained and all the patient's questions were answered. The lesion in question was localized mammographically. The standard sterile technique was utilized, as well as appropriate local anesthesia with 1% Lidocaine and bicarbonate. Localization needle followed by placement of a guidewire was performed under mammographic guidance x2. Verification images demonstrate appropriate deployment of the guidewires. The patient tolerated the procedure well and left the department in stable condition. Specimen radiograph demonstrates the clips in question to reside within the specimen. IMPRESSION: Successful needle localization at 2 sites and open biopsy right breast with pathology results pending . Pathology Results: Malignant A. SENTINEL LYMPH NODES, BIOPSIES: Two lymph nodes negative for metastatic adenocarcinoma as documented by appropriately controlled cytokeratin 7 and RYAN stains performed on each of two nodes as well as H+E stained sections. B. AXILLARY CONTENTS, DISSECTION: Fibroadipose tissue, negative for lymph nodes. C. RIGHT BREAST LESION NEAR 1:00 POSITION: Infiltrating ductal adenocarcinoma, Maria M Grade 1, closest to the medial localization clip, measuring about 1 cm in greatest dimension and measuring a 5.1 mm away from the purple inked deep margin of resection and 7.5 mm away from the second closest black anterior inked margin of resection. The other two mammographic markers are in areas of fibrocystic spectrum disorder negative for adenocarcinoma. See Surgical Pathology Cancer Case Summary) D. SKIN, EXCISION: Benign skin and dermis. Recommendation Surgical consult of the right breast. AARON
== END 2020-02-23 13:47 | disposition home or self-care (01) ==
LOC: OR 07:27
PROVIDERS: ATTEND Surgery
DX: C50.411 Malignant neoplasm of upper-outer quadrant of right female breast (principal); Z17.0 Estrogen receptor positive status [ER+]; N83.9 Noninflammatory disorder of ovary, fallopian tube and broad ligament, unspecified; I11.0 Hypertensive heart disease with heart failure; I50.9 Heart failure, unspecified; J44.9 Chronic obstructive pulmonary disease, unspecified; G89.29 Other chronic pain; M81.0 Age-related osteoporosis without current pathological fracture; M19.90 Unspecified osteoarthritis, unspecified site; F41.9 Anxiety disorder, unspecified; F32.9 Major depressive disorder, single episode, unspecified; H93.13 Tinnitus, bilateral; I25.2 Old myocardial infarction; Z85.42 Personal history of malignant neoplasm of other parts of uterus; Z85.41 Personal history of malignant neoplasm of cervix uteri; Z80.0 Family history of malignant neoplasm of digestive organs; Z90.710 Acquired absence of both cervix and uterus; Z90.49 Acquired absence of other specified parts of digestive tract; Z98.51 Tubal ligation status; Z98.890 Other specified postprocedural states; Z79.891 Long term (current) use of opiate analgesic; Z79.899 Other long term (current) drug therapy; Z88.6 Allergy status to analgesic agent; Z88.8 Allergy status to other drugs, medicaments and biological substances; F17.210 Nicotine dependence, cigarettes, uncomplicated; K21.9 Gastro-esophageal reflux disease without esophagitis
CPT/HCPCS: 19301; 38525; 88305; 88342; 88307; 88341; 76098; 38792; A9520; J2250; J1644; J1100; J2405; J2001; J3010; J1170 ×2; J0131; J0330; J2704

== ENCOUNTER → 2020-03-03 | Outpatient (CLI) | payer OTHER ==
--- NOTE | 2020-03-03 16:09 | P.PN ---
Progress Note - Text Progress Note Date: 03/03/20 Charline is a 54-year-old white female status post right breast lumpectomy [place] [id number]. Pathology was created 1 infiltrating ductal adenocarcinoma. Margins were negative. The patient had 2 sentinel nodes remove both of which were negative. A second area of concern had been localized and removed with the lumpectomy and no additional cancer was found in that site. The size of the tumor was approximately 1 cm. Physical exam: Lungs: Clear Heart: Regular rate and rhythm Incision right breast and axilla clean and dry Evidence of infection Impression/plan: 1. Patient status post partial mastectomy right breast margins negative this is a stage IA lesion 2. Follow-up with medical oncology 3. Follow-up with radiation oncology 4. Follow up here in 3-4 months 5. Patient has asymmetry related to partial mastectomy in December of this asymmetry procedure to be performed in the future CC: Dr. Tone Vidal
[2020-03-04 10:20] VITALS: BP 118/81; PULSE 99; RESP 18; TEMP 98.7
== END | disposition home or self-care (01) ==
LOC: WWCWWP 15:52
PROVIDERS: ATTEND Surgery
DX: Z53.9 Procedure and treatment not carried out, unspecified reason (principal)

== ENCOUNTER → 2020-07-07 | Outpatient (CLI) | payer OTHER ==
[2020-07-07 14:34] VITALS: BP 116/79; PULSE 91; RESP 18; TEMP 98.2
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
== END | disposition home or self-care (01) ==
LOC: WWCWWP 14:02
PROVIDERS: ATTEND Surgery
DX: Z53.9 Procedure and treatment not carried out, unspecified reason (principal)

== ENCOUNTER → 2020-07-15 | Outpatient (CLI) | payer OTHER ==
[2020-07-15 14:30] VITALS: BP 118/83; PULSE 83; RESP 18; TEMP 98.4
--- NOTE | 2020-07-15 14:42 | P.PN ---
Progress Note - Text Progress Note Date: 07/15/20 Charline is a 55-year-old white female who is status post lumpectomy and sentinel node biopsy and [id number]. The margins were negative and lymph nodes were benign. [place] [address]. She did not have chemotherapy but is on Aromasin. She continues to have discomfort in the right breast. She did have some skin reaction to the radiation and developed some edema. Last week she was given a course of Keflex without any change in the appearance of the breast. This time it does not appear that she has any acute cellulitis or infection in the breast. The skin changes seem to be related to the surgical procedure and radiation. I would recommend that she follow with radiation oncology and I will see her here again in 4 months time.
== END | disposition home or self-care (01) ==
LOC: WWCWWP 14:07
PROVIDERS: ATTEND Surgery
DX: Z53.9 Procedure and treatment not carried out, unspecified reason (principal)

== ENCOUNTER → 2020-09-28 | Outpatient (CLI) | payer OTHER ==
--- NOTE | 2020-09-28 14:13 | MM ---
Reason for exam: follow-up at short interval from prior study. Last mammogram was performed 11 months ago. History: Patient is postmenopausal, has history of breast cancer at age 54, and has history of other cancer at age 40. Family history of breast cancer in maternal cousin and breast cancer in mother at age 65. Malignant MG pre op needle loc RT of the right breast, February 23, 2020. MR breast biopsy w vad RIGHT of the right breast, January 26, 2020. Benign US breast needle core RT of the right breast, January 06, 2020. Malignant US biopsy breast VAD RT of the right breast, November 05, 2019. Took hormonal contraceptives for 7 years beginning at age 12. Taking antineoplastic beginning at age 54. Physical Findings: Nurse did not find any significant physical abnormalities on exam. MG Diagnostic Mammo w CAD SARAH Bilateral CC and MLO view(s) were taken. Prior study comparison: November 05, 2019, right breast MG diagnostic mammo RT wo CAD. October 05, 2019, right breast MG work up mamm w CAD RT. September 22, 2019, bilateral MG screening mammo w CAD. March 19, 2017, bilateral MG diagnostic mammo w CAD SARAH. There is chronic nodularity in the left breast. Post surgical changes right breast. Skin thickening right breast. No significant new findings when compared with previous films. These results were verbally communicated with the patient and result sheet given to the patient on 09/28/20. ASSESSMENT: Benign, BI-RAD 2 RECOMMENDATION: Follow-up diagnostic mammogram of both breasts in 1 year.
== END | disposition home or self-care (01) ==
LOC: RADMAMWWP 11:00
PROVIDERS: ATTEND Radiology Radiation Oncology
DX: C50.211 Malignant neoplasm of upper-inner quadrant of right female breast (principal); Z17.0 Estrogen receptor positive status [ER+]
CPT/HCPCS: 77066

== ENCOUNTER → 2020-10-20 | Outpatient (CLI) | payer OTHER ==
[2020-10-20 15:33] VITALS: BP 128/86; PULSE 99; RESP 18; TEMP 98.7
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
== END | disposition home or self-care (01) ==
LOC: WWCWWP 14:56
PROVIDERS: ATTEND Surgery
DX: C50.911 Malignant neoplasm of unspecified site of right female breast (principal); G89.29 Other chronic pain; J44.9 Chronic obstructive pulmonary disease, unspecified; M81.0 Age-related osteoporosis without current pathological fracture; F17.200 Nicotine dependence, unspecified, uncomplicated; Z98.890 Other specified postprocedural states

== ENCOUNTER → 2021-02-16 | Outpatient (CLI) | payer OTHER ==
--- NOTE | 2021-02-17 07:29 | BD ---
EXAMINATION TYPE: Axial Bone Density DATE OF EXAM: 02/16/2021 COMPARISON: NONE CLINICAL HISTORY: Height: 65 Weight: 238.2 FRAX RISK QUESTIONS: Alcohol (3 or more units per day): no Family History (Parent hip fracture): yes father Glucocorticoids (More than 3mos): no (Ex: prednisone, prednisolone, methylprednisolone, dexamethasone, and hydrocortisone). History of Fracture in Adulthood: yes Secondary Osteoporosis: 1. Type 1 Diabetes: no 2. Hyperthyroidism: no 3. Menopause before 45: yes 4. Malnutrition: no 5. Chronic liver disease: no Rheumatoid Arthritis: no Current Tobacco Use: yes RISK FACTORS HISTORY OF: Surgery to Spine/Hip(right/left)/Wrist (right/left): no Family History of Osteoporosis: yes Active: sometimes Diet low in dairy products/other sources of calcium: no Postmenopausal woman: age 40 Lost more than 2 inches in height since high school: no MEDICATIONS: breast cancer hormone brayden, Prednisone or other steroids: inhalers Osteoporosis Medications: fosamax How Lon year Additional Medications: Additional History: pt has had cervical, uterine and breast cancer EXAM MEASUREMENTS: Bone mineral densitometry was performed using the Pylba System. Bone mineral density as measured about the Lumbar spine is: ----- L1-L4(G/cm2): 0.916 T Score Values are as follows: ----- L2: -1.6 ----- L3: -2.8 ----- L4: -2.6 ----- L1-L4: -2.2 Bone mineral density has: increased 4.0 % since study of: 09.22.2019 Bone mineral density about the R hip (g/cm2): 0.738 Bone mineral density about the L hip (g/cm2): 0.789 T Score values are as follows: -----R Neck: -2.2 -----L Neck: -1.8 -----R Total: -2.0 -----L Total: -1.4 Bone mineral density has: increased 4.1 % since study of: 09.22.2019 IMPRESSION: Osteoporosis NOTE: T-SCORE=SD OF THE YOUNG ADULT MEAN.
== END | disposition home or self-care (01) ==
LOC: RADBDWWP 14:50
PROVIDERS: ATTEND Internal Medicine Hematology & Oncology
DX: Z13.820 Encounter for screening for osteoporosis (principal); M81.0 Age-related osteoporosis without current pathological fracture; M85.89 Other specified disorders of bone density and structure, multiple sites; Z78.0 Asymptomatic menopausal state
CPT/HCPCS: 77080

== ENCOUNTER → 2021-02-16 | Outpatient (CLI) | payer OTHER ==
[2021-02-16 15:44] VITALS: BP 132/95; PULSE 69; RESP 18; TEMP 98.4
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
== END ==
LOC: WWCWWP 14:49
PROVIDERS: ATTEND Surgery
DX: Z08 Encounter for follow-up examination after completed treatment for malignant neoplasm (principal); N64.89 Other specified disorders of breast; J44.9 Chronic obstructive pulmonary disease, unspecified; M85.80 Other specified disorders of bone density and structure, unspecified site; Z98.890 Other specified postprocedural states; Z85.3 Personal history of malignant neoplasm of breast; G89.29 Other chronic pain; Z87.891 Personal history of nicotine dependence; Z88.6 Allergy status to analgesic agent

== ENCOUNTER → 2021-09-29 | Outpatient (CLI) | payer OTHER ==
--- NOTE | 2021-09-29 12:46 | MM ---
Reason for exam: additional evaluation requested from prior study. Last mammogram was performed 1 year ago. History: Patient is postmenopausal, has history of breast cancer at age 54, and has history of other cancer at age 40. Family history of breast cancer in maternal cousin and breast cancer in mother at age 65. Malignant MG pre op needle loc RT of the right breast, February 23, 2020. MR breast biopsy w vad RIGHT of the right breast, January 26, 2020. Benign US breast needle core RT of the right breast, January 06, 2020. Malignant US biopsy breast VAD RT of the right breast, November 05, 2019. Took hormonal contraceptives for 7 years beginning at age 12. Taking antineoplastic beginning at age 54. Took other hormone for 1 year 6 months. Physical Findings: Nurse did not find any significant physical abnormalities on exam. MG Diagnostic Mammo w CAD SARAH Bilateral CC and MLO view(s) were taken. Prior study comparison: September 28, 2020, bilateral MG diagnostic mammo w CAD SARAH. November 05, 2019, right breast MG diagnostic mammo RT wo CAD. The breast tissue is heterogeneously dense. This may lower the sensitivity of mammography. There is chronic nodularity in the left breast. Stable post operative lumpectomy radiation therapy changes right breast. No significant new findings when compared with previous films. These results were verbally communicated with the patient and result sheet given to the patient on 09/29/21. ASSESSMENT: Benign, BI-RAD 2 RECOMMENDATION: Follow-up diagnostic mammogram of both breasts in 1 year.
== END | disposition home or self-care (01) ==
LOC: RADMAMWWP 11:07
PROVIDERS: ATTEND Radiology Radiation Oncology
DX: C50.211 Malignant neoplasm of upper-inner quadrant of right female breast (principal)
CPT/HCPCS: 77066

== ENCOUNTER → 2021-10-05 | Outpatient (CLI) | payer OTHER ==
[2021-10-05 14:35] VITALS: BP 99/69; PULSE 97; RESP 18; TEMP 98.6
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
== END ==
LOC: WWCWWP 14:18
PROVIDERS: ATTEND Surgery
DX: C50.911 Malignant neoplasm of unspecified site of right female breast (principal); J44.9 Chronic obstructive pulmonary disease, unspecified; G89.29 Other chronic pain; M81.0 Age-related osteoporosis without current pathological fracture; Z87.891 Personal history of nicotine dependence; Z88.6 Allergy status to analgesic agent

== ENCOUNTER 2022-03-23 16:25 | Emergency (ER) | payer OTHER ==
[2022-03-23 16:34] VITALS: RESP 18; TEMP 98.1
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
[2022-03-23] MEDS ORDERED: SODIUM CHLORIDE 0.9% 1,000 ML IV STA (16:46)
[2022-03-23 17:02] LABS: Basophils # (A) 0.1 k/uL (0-0.2); Basophils % (A) 1 %; Eosinophils # (A) 0.3 k/uL (0-0.7); Eosinophils % (A) 3 %; HCT 50.5 % (34.0-46.0); HGB 16.7 gm/dL (11.4-16.0); Lymphocytes # (A) 2.7 k/uL (1.0-4.8); Lymphocytes % (A) 26 %; MCHC 33.2 g/dL (31.0-37.0); MCV 87.4 fL (80.0-100.0); Monocytes # (A) 0.5 k/uL (0-1.0); Monocytes % (A) 5 %; Neutrophils # (A) 6.9 k/uL (1.3-7.7); Neutrophils % (A) 64 %; Platelet Count 407 k/uL (150-450); RBC 5.77 m/uL (3.80-5.40); RDW 12.8 % (11.5-15.5); WBC 10.8 k/uL (3.8-10.6)
[2022-03-23 17:11] LABS: ALT 43 U/L (4-34); AST 31 U/L (14-36); African American GFR (CKD) >90 (>60 ml/min/1.73 sqM); Alkaline Phosphatase 80 U/L (38-126); Anion Gap 13 mmol/L; Blood Urea Nitrogen 16 mg/dL (7-17); Calcium 10.7 mg/dL (8.4-10.2); Carbon Dioxide 21 mmol/L (22-30); Chloride 104 mmol/L (98-107); Glucose 142 mg/dL (74-99); Magnesium 1.8 mg/dL (1.6-2.3); Non-African American GFR(CKD) 79 (>60 ml/min/1.73 sqM); Potassium 4.3 mmol/L (3.5-5.1); Sodium 138 mmol/L (137-145); Total Bilirubin 0.6 mg/dL (0.2-1.3); Total Protein 7.8 g/dL (6.3-8.2)
[2022-03-23 17:19] LABS: INR 0.9 (<1.2); Partial Thromboplastin Time 26.7 sec (22.0-30.0); Prothrombin Time 10.2 sec (9.0-12.0)
[2022-03-23 18:07] LABS: Amphetamine Screen,Urine Not Detected (NotDetected); Barbiturate Screen,Urine Not Detected (NotDetected); Benzodiazepines Screen,Urine Not Detected (NotDetected); Cocaine Screen,Urine Not Detected (NotDetected); Methadone Screen, Urine Not Detected (NotDetected); Opiate Screen,Urine Not Detected (NotDetected); Oxycodone Screen, Urine Not Detected (NotDetected); Phencyclidine Screen,Urine Not Detected (NotDetected); Tricyclic Antidepressant,Urine Not Detected (NotDetected); Urn Cannabinoid Scrn Detected (NotDetected)
--- NOTE | 2022-03-23 18:20 | XR ---
EXAMINATION TYPE: XR chest 2V DATE OF EXAM: 03/23/2022 5:54 PM COMPARISON: CXR 07/29/2017, chest x-ray 08/10/2019. TECHNIQUE: XR chest 2V . CLINICAL INDICATION:Female, 56 years old with history of dysrhythmia; FINDINGS: Lungs/Pleura: No focal airspace consolidation. No evidence of pneumothorax, pleural effusion or focal consolidation. Redemonstration of COPD changes, which are slightly progressed from 2019. Pulmonary vascularity: Normal. Heart/mediastinum: Cardiomediastinal silhouette is unremarkable. Vascular sclerosis of the aortic ar ch. Musculoskeletal: Degenerative changes of the thoracic spine. No acute osseous abnormalities. IMPRESSION: No acute cardiopulmonary disease/process. Similar chronic emphysematous changes.
[2022-03-23 19:25] VITALS: BP 139/99; PULSE 98
== END 2022-03-23 19:25 | disposition home or self-care (01) ==
LOC: EC 16:25
DX: R00.0 Tachycardia, unspecified (principal); J44.9 Chronic obstructive pulmonary disease, unspecified; I25.2 Old myocardial infarction; Z87.891 Personal history of nicotine dependence; Z88.6 Allergy status to analgesic agent
CPT/HCPCS: 36415; 71046; 80053; 80306; 83735; 83880; 84443; 84484; 85025; 85379; 85610; 85730; 93005; 96360; 99285

== ENCOUNTER → 2022-03-23 | Outpatient (CLI) | payer OTHER ==
[2022-03-23 15:20] VITALS: BP 140/91; PULSE 123; RESP 28; TEMP 98.4
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
== END ==
LOC: WWCWWP 14:45
PROVIDERS: ATTEND Surgery
DX: Z08 Encounter for follow-up examination after completed treatment for malignant neoplasm (principal); Z85.3 Personal history of malignant neoplasm of breast; Z98.890 Other specified postprocedural states; N64.89 Other specified disorders of breast; Z85.42 Personal history of malignant neoplasm of other parts of uterus; R00.0 Tachycardia, unspecified; R06.02 Shortness of breath; Z79.811 Long term (current) use of aromatase inhibitors; J44.9 Chronic obstructive pulmonary disease, unspecified; Z87.39 Personal history of other diseases of the musculoskeletal system and connective tissue

== ENCOUNTER → 2023-02-18 | Outpatient (CLI) | payer OTHER ==
--- NOTE | 2023-02-18 11:03 | BD ---
EXAMINATION TYPE: Axial Bone Density DATE OF EXAM: 02/18/2023 CLINICAL HISTORY: 57 years old Female. ICD-10 CODE: C50.211 BREAST CA Height: 63.2in Weight: 228lb FRAX RISK QUESTIONS: Family History (Parent hip fracture): yes History of Fracture in Adulthood: yes Secondary Osteoporosis: 3. Menopause before 45: yes Current Tobacco Use: yes RISK FACTORS HISTORY OF: Family History of Osteoporosis: yes Active: somewhat Postmenopausal woman: yes Frequent falls: yes Poor Health: fair MEDICATIONS: Osteoporosis Medications: Which medication: yes, pt unsure of name once a week How Long: about 2 years Additional Medications: hormone brayden, reflux med, inhaler Additional History: History of breast cancer EXAM MEASUREMENTS: Bone mineral densitometry was performed using the [email or web address] System. Bone mineral density as measured about the Lumbar spine is: ----- L1-L4(G/cm2): 0.933 T Score Values are as follows: ----- L1: -1.8 ----- L2: -2.4 ----- L3: -2.2 ----- L4: -1.9 ----- L1-L4: -2.1 Z Score Values are as follows: ----- L1: -1.8 ----- L2: -2.4 ----- L3: -2.2 ----- L4: -1.9 ----- L1-L4: -2.1 Bone mineral density has: Increased 1.9% since study of: 02-16-21 Bone mineral density about the R hip (g/cm2): 0.748 Bone mineral density about the L hip (g/cm2): 0.829 T Score values are as follows: -----R Neck: -2.1 -----L Neck: -1.9 -----R Total: -2.1 -----L Total: -1.4 Z Score values are as follows: -----R Neck: -1.6 -----L Neck: -1.5 -----R Total: -2.0 -----L Total: -1.4 Bone mineral density has: Decreased -0.3% since study of: 6-24-21 FRAX%s: The graph provided illustrates a 40.9% chance for a major osteoporotic fx and a 6.7% chance f or the hips probability for fx in 10 years time. IMPRESSION: Osteopenia (T Score between -2.5 and -1). There is slightly increased risk of fracture and the patient may be considered for treatment. Re-Screen 2-5 years. NOTE: T-SCORE=SD OF THE YOUNG ADULT MEAN.
== END | disposition home or self-care (01) ==
LOC: RADBDWWP 10:02
PROVIDERS: ATTEND Internal Medicine Hematology & Oncology
DX: C50.211 Malignant neoplasm of upper-inner quadrant of right female breast (principal); M85.89 Other specified disorders of bone density and structure, multiple sites
CPT/HCPCS: 77080

== ENCOUNTER 2023-07-15 16:58 | Emergency (ER) | payer OTHER ==
[2023-07-15 17:32] VITALS: RESP 18; TEMP 98
[2023-07-15] MEDS ORDERED: FLUORESCEIN STRIPS 1 MG STRIP RIGHT EYE ONE (17:44)
[2023-07-15] MEDS ORDERED: PROPARACAINE 0.5% OPHTH DROPS 15 ML BTL RIGHT EYE STA (17:44)
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
[2023-07-15 20:02] VITALS: BP 145/95; PULSE 85
[2023-07-15] MEDS ORDERED: ATROPINE OPHTH SOLN 1% 5ML BTL RIGHT EYE SCH (22:00)
== END 2023-07-15 19:49 | disposition home or self-care (01) ==
LOC: EC 16:58
DX: H20.012 Primary iridocyclitis, left eye (principal); J44.89 Other specified chronic obstructive pulmonary disease; I25.2 Old myocardial infarction; F12.90 Cannabis use, unspecified, uncomplicated; Z86.59 Personal history of other mental and behavioral disorders; Z87.891 Personal history of nicotine dependence; Z79.899 Other long term (current) drug therapy; Z88.6 Allergy status to analgesic agent; Z88.8 Allergy status to other drugs, medicaments and biological substances; Z79.51 Long term (current) use of inhaled steroids
CPT/HCPCS: 99283

== ENCOUNTER → 2024-03-02 | Outpatient (CLI) | payer OTHER ==
--- NOTE | 2024-03-05 12:51 | MM ---
Reason for Exam: Screening (asymptomatic). Last mammogram was performed 1 year(s) and 5 month(s) ago. Patient History: Menarche at age 12. First Full-Term at age 14. Hysterectomy at age 41. Postmenopausal. Other cancer, age 40. Breast cancer, right, age 54. Hormonal Contraceptives for 7 years from age 12 until age 21. 02/23/2020, Malignant Core Biopsy on the right side. 01/26/2020, Core Biopsy on the Right side. 01/06/2020, Benign Core Biopsy on the right side. 11/05/2019, Malignant Core Biopsy on the right side. Maternal cousin had breast cancer. Mother had breast cancer, age 65. Prior Study Comparison: 09/28/2020 Bilateral Diagnostic Mammogram, [facility]. 09/29/2021 Bilateral Diagnostic Mammogram, [facility]. 10/11/2022 Bilateral MG diagnostic mammo w CAD SARAH, [facility]. Tissue Density: The breasts are heterogeneously dense, which may obscure small masses. Findings: Analyzed By CAD. Right breast surgical clips. Right breast: There is no suspicious group of microcalcifications or new suspicious mass. Benign-appearing calcifications right breast. Left breast: There is no suspicious group of microcalcifications or new suspicious mass. Benign-appearing calcifications left breast. Overall Assessment: Benign, BI-RAD 2 Management: Screening Mammogram of both breasts in [address] [facility] will attempt to contact patient to return for supplemental views and ultrasound if indicated. Patient should continue monthly self-breast exams. A clinical breast exam by your physician is recommended on an annual basis. This exam should not preclude additional follow-up of suspicious palpable abnormalities. Note on Rebecca scores and lifetime risk: 1. A Rebecca score greater than 3% is considered moderate risk. If this is the case, consider specialist referral to assess eligibility for a risk reducing agent. 2. If overall lifetime risk for the development of breast cancer is 20% or higher, the patient may qualify for future screening with alternating mammogram and breast MRI. Electronically signed and approved by: Kelvin Clark DO
== END | disposition home or self-care (01) ==
LOC: RADMAMWWP 12:33
PROVIDERS: ATTEND Internal Medicine Hematology & Oncology
DX: Z12.31 Encounter for screening mammogram for malignant neoplasm of breast (principal); Z78.0 Asymptomatic menopausal state; Z80.3 Family history of malignant neoplasm of breast
CPT/HCPCS: 77067

== ENCOUNTER → 2025-03-16 | Outpatient (CLI) | payer OTHER ==
--- NOTE | 2025-03-17 08:20 | MM ---
Reason for Exam: Screening (asymptomatic). Last screening mammogram was performed 12 month(s) ago. Patient History: Menarche at age 12. First Full-Term at age 14. Hysterectomy at age 41. Postmenopausal. Patient has history of breast feeding. Other cancer, age 40. Breast cancer, right, age 54. Hormonal Contraceptives for 7 years from age 12 until age 21. 02/23/2020, Malignant Core Biopsy on the right side. 01/26/2020, Core Biopsy on the Right side. 01/06/2020, Benign Core Biopsy on the right side. 11/05/2019, Malignant Core Biopsy on the right side. Maternal cousin had breast cancer. Mother had breast cancer, age 65. Prior Study Comparison: 09/29/2021 Bilateral Diagnostic Mammogram, [facility]. 10/11/2022 Bilateral MG diagnostic mammo w CAD SARAH, [facility]. 03/02/2024 Bilateral MG screening mammo w CAD, [facility]. Tissue Density: The breasts are heterogeneously dense, which may obscure small masses. Findings: Analyzed By CAD. Right breast surgical clips. Right breast: There is no suspicious group of microcalcifications or new suspicious mass. Left breast: There is no suspicious group of microcalcifications or new suspicious mass. Overall Assessment: Benign, BI-RAD 2 Management: Screening Mammogram of both breasts in [address] [facility] will attempt to contact patient to return for supplemental views and ultrasound if indicated. Patient should continue monthly self-breast exams. A clinical breast exam by your physician is recommended on an annual basis. This exam should not preclude additional follow-up of suspicious palpable abnormalities. Note on Rebecca scores and lifetime risk: 1. A Rebecca score greater than 3% is considered moderate risk. If this is the case, consider specialist referral to assess eligibility for a risk reducing agent. 2. If overall lifetime risk for the development of breast cancer is 20% or higher, the patient may qualify for future screening with alternating mammogram and breast MRI. [facility], , 03/17/2025 8:17 AM. Electronically signed and approved by: Kelvin Clark DO
--- NOTE | 2025-03-18 12:53 | BD ---
EXAMINATION TYPE: Axial Bone Density DATE OF EXAM: 03/16/2025 CLINICAL HISTORY: 59 years old Female. ICD-10 CODE: M81.0 OSTEOPENIA , Additional History: Height: 64.5 in Weight: 226 lbs FRAX RISK QUESTIONS: Family History (Parent hip fracture): yes father History of Fracture in Adulthood: eduardo humerus, rt tib/fib, rt foot, rt ankle, accident 1988 age 24 Secondary Osteoporosis: 3. Menopause before 45: age 40 Current Tobacco Use: yes RISK FACTORS HISTORY OF: History of Wrist Fracture: eduardo wrist fx When: 1997 EXAM MEASUREMENTS: Bone mineral densitometry was performed using the [employer] System. Bone mineral density as measured about the Lumbar spine is: ----- L1-L4(G/cm2): 0.916 T Score Values are as follows: ----- L1: -1.9 ----- L2: -1.9 ----- L3: -2.9 ----- L4: -2.2 ----- L1-L4: -2.2 Z Score Values are as follows: ----- L1: -1.7 ----- L2: -1.7 ----- L3: -2.7 ----- L4: -2.1 ----- L1-L4: -2.0 Bone mineral density has: Decreased -1.8% since study of: 02/18/2023 Bone mineral density about the R hip (g/cm2): 0.683 Bone mineral density about the L hip (g/cm2): 0.744 T Score values are as follows: -----R Neck: -2.3 -----L Neck: -2.0 -----R Total: -2.6 -----L Total: -2.1 Z Score values are as follows: -----R Neck: -1.8 -----L Neck: -1.4 -----R Total: -2.4 -----L Total: -1.9 Bone mineral density has: Decreased -9.6% since study of: 02/18/2023 FRAX%s: The graph provided illustrates a 31.5% chance for a major osteoporotic fx and a 5.1% chance f or the hips probability for fx in 10 years time. IMPRESSION: Osteoporosis (T Score less than -2.5). There is increased fracture risk and therapy is usually indicated based on age. Re-Screen 1-2 years. NOTE: T-SCORE=SD OF THE YOUNG ADULT MEAN. [facility], , 03/18/2025 12:50 PM
== END | disposition home or self-care (01) ==
LOC: RADBDWWP 15:00
PROVIDERS: ATTEND Internal Medicine Hematology & Oncology
DX: Z12.31 Encounter for screening mammogram for malignant neoplasm of breast (principal); M81.0 Age-related osteoporosis without current pathological fracture; R92.333 Mammographic heterogeneous density, bilateral breasts; Z80.3 Family history of malignant neoplasm of breast; Z85.3 Personal history of malignant neoplasm of breast; Z78.0 Asymptomatic menopausal state; Z92.0 Personal history of contraception; C50.211 Malignant neoplasm of upper-inner quadrant of right female breast; J45.909 Unspecified asthma, uncomplicated; J44.9 Chronic obstructive pulmonary disease, unspecified; K21.9 Gastro-esophageal reflux disease without esophagitis
CPT/HCPCS: 77067; 77080